=== PATIENT | female | born 1960 | race Caucasian/White ===

== ENCOUNTER 2022-06-03 06:16 | Day surgery (SDC) | payer BC ==
[2022-06-03] VITALS (12 sets, daily range): BP systolic 129–176; BP diastolic 7–95; PULSE 61–89; TEMP 97.1–98.7
[~2022-06-03] VITALS: Ht 160 cm; Wt 53.9 kg
[2022-06-03] MEDS ORDERED: VITAMIND3 5000 PO (07:21)
[2022-06-03] MEDS ORDERED: CENTRUM SILVER1 CTB PO (07:21)
[2022-06-03] MEDS ORDERED: VITAMIN B125000 MCG PO (07:22)
[2022-06-03] MEDS ORDERED: OMEGA-3 1000 MG1 CAP PO (07:22)
[2022-06-03] MEDS ORDERED: PROBIOTIC BLEN1 EACH PO (07:23)
[2022-06-03] MEDS ORDERED: COZAAR 25MG25 MG/TAB PO (07:24)
[2022-06-03] MEDS ORDERED: PRILOSEC 20MG20 MG PO (07:24)
--- NOTE | 2022-06-03 11:14 | NUR ---
recieved report from PATROL DEPUTY SHERIFFGILMA Orta.
--- NOTE | 2022-06-03 21:04 | NUR ---
Patient A/Ox4, head to toe assessment done, see shift assessment, reports abdominal pain which she rated it as 7/10, oxycodone given, denies SOA or nausea, ambulated down the hallway, denies further needs, call light and personal items within reach, will continue to monitor.
[2022-06-03] MEDS ORDERED: MOTRIN 800800 MG/TAB PO (22:37)
[2022-06-03] MEDS ORDERED: PERCOCET 325 MG1 TA2 PO (22:37)
[2022-06-04 00:17] VITALS: BP 154/81; PULSE 66; TEMP 98.1
[2022-06-04 04:24] VITALS: BP 157/77; PULSE 66; TEMP 97.8
--- NOTE | 2022-06-04 06:29 | NUR ---
Patient resting in bed, denies need at this time, had 1000ml of urine output, will report off to dayshift nurse.
[2022-06-04 07:18] VITALS: BP 135/77; PULSE 58; TEMP 97.6
--- NOTE | 2022-06-04 10:25 | NUR ---
Pt alert, Ox4, VSS, pain well controlled. Reports pain 3/10, referring to "pressure" in ribcage area. Pt voiding, passing flatus and ambulating without difficulty. Discussed d/c instructions and f/u appts with pt and . Cautioned pt to follow lifting restrictions until released by provider. Pt acknowledges understanding. IV d/c complete/intact, pressure applied, no bleeding noted. Pt ambulates from facility, escorted by and staff.
== END 2022-06-04 10:20 | disposition home or self-care (01) ==
LOC: SDCO 06:16 → SURG 11:49 → SDCO 06-04 10:20
DX: N81.2 Incomplete uterovaginal prolapse (principal); D25.2 Subserosal leiomyoma of uterus; I10 Essential (primary) hypertension; Z79.899 Other long term (current) drug therapy
CPT/HCPCS: OP; A4314; A9284; C1781; J0690; J1170; J1885; J2405; J2704; J3010; J7120